=== PATIENT | female | born 1995 | race Caucasian/White ===

== ENCOUNTER 2017-04-17 21:12 | Emergency (ER) | payer BC ==
[2017-04-17 22:49] LABS: BASOPHILS % (AUTO) 0.3 % (0.0-5.0); EOSINOPHILS % (AUTO) 0.4 % (0.0-8.0); HEMATOCRIT 39.1 % (36-48); LYMPHOCYTES % (AUTO) 15.6 % (21.0-51.0); MEAN CORPUSCULAR HEMOGLOBIN 29.7 pg (27.0-33.0); MEAN CORPUSCULAR HGB CONC 34.6 g/dL (32.0-36.0); MEAN CORPUSCULAR VOLUME 86.1 fL (79-99); MONOCYTES % (AUTO) 8.4 % (3.0-13.0); NEUTROPHILS % (AUTO) 75.3 % (40.0-77.0); PLATELET COUNT (AUTO) 264 K/uL (130-400); RED BLOOD CELL COUNT(AUTO) 4.54 MIL/uL (4.00-5.50); RED CELL DISTRIBUTION WIDTH 14.6 % (11.0-15.5); WHITE BLOOD COUNT (AUTO) 13.4 K/uL (4.8-10.8)
[2017-04-17 22:56] LABS: CARBON DIOXIDE 24 mmol/L (21-32); CHLORIDE 105 mmol/L (101-111); CREATININE 0.7 mg/dL (0.5-1.5); GLOMERULAR FILTR. RATE CALC 111 mL/min (>60); GLUCOSE,RANDOM 84 mg/dL (70-105); POTASSIUM 3.5 mmol/L (3.5-5.1); SODIUM SERUM 140 mmol/L (136-145); UREA NITROGEN, BLOOD 10 mg/dL (7-18)
[2017-04-17 23:02] LABS: ALANINE AMINOTRANSFERASE 25 U/L (12-78); ALBUMIN 3.9 g/dL (3.5-5.0); ASPARTATE AMINOTRANSFERASE 19 U/L (10-37); BILIRUBIN,TOTAL 0.7 mg/dL (0.2-1.0); TOTAL PROTEIN, SERUM 7.3 g/dL (6.0-8.3)
[2017-04-17 23:06] LABS: ACETAMINOPHEN < 1 mcg/mL (10-30); ALCOHOL, BLOOD < 3 mg/dL (0-10); SALICYLATE < 2.8 mg/dL (2.8-20.0)
== END 2017-04-18 00:32 | disposition left against medical advice (07) ==
LOC: EDH 21:12
DX: F31.9 Bipolar disorder, unspecified (principal); F22 Delusional disorders; F41.9 Anxiety disorder, unspecified; F90.9 Attention-deficit hyperactivity disorder, unspecified type
CPT/HCPCS: 36415; 80053; 84703; 85025; 93005; 99285; G0480 ×2; G0481

== ENCOUNTER 2019-03-09 23:32 | Emergency (ER) | payer BC | END 2019-03-10 00:23 | disposition home or self-care (01) | LOC: EDH 23:32 | DX: M25.551 Pain in right hip (principal); R05 Cough; F90.9 Attention-deficit hyperactivity disorder, unspecified type; F32.9 Major depressive disorder, single episode, unspecified; Z72.0 Tobacco use | CPT/HCPCS: 99281 ==

== ENCOUNTER 2021-05-27 02:49 | Emergency (ER) | payer BC, MEDICAID, OTHER ==
[~2021-05-27] VITALS: Ht 170.2 cm; Wt 63.5 kg
[2021-05-27] MEDS ORDERED: LORAZEPAM 1 MG TABLET PO ONE (04:30)
[2021-05-27] MEDS ORDERED: LORAZEPAM 1 MG TABLET ONE (04:32)
[2021-05-27 04:46] LABS: APPEARANCE,URINE Cloudy (CLEAR); BILIRUBIN,URINE Negative (NEGATIVE); COLOR,URINE Yellow (YELLOW); GLUCOSE, URINE (UA) Negative (NEGATIVE); KETONES,URINE Negative (NEGATIVE); LEUKOCYTE ESTERASE ,URINE Moderate (NEGATIVE); NITRATE,URINE Positive (NEGATIVE); OCCULT BLOOD,URINE Negative (NEGATIVE); PH,URINE 7.5 (5.0-8.0); PROTEIN,URINE Negative (NEGATIVE)
[2021-05-27 04:53] LABS: BACTERIA,URINE Many /HPF (None Seen); SQUAMOUS EPITHELIAL CELL,UR Few /HPF (0-2)
[2021-05-27 04:54] LABS: HCG,QUAL RESULT NEGATIVE (NEGATIVE)
[2021-05-27 04:55] LABS: AMPHET/METH SCREEN,URINE NEGATIVE (NEGATIVE); BARBITURATE SCREEN, URINE NEGATIVE (NEGATIVE); BENZODIAZEPINES SCREEN,URINE NEGATIVE (NEGATIVE); CANNABINOID SCREEN,URINE POSITIVE (NEGATIVE); COCAINE SCREEN,URINE POSITIVE (NEGATIVE); OPIATE SCREEN,URINE NEGATIVE (NEGATIVE); PHENCYCLIDINE SCREEN,URINE NEGATIVE (NEGATIVE)
[2021-05-27 06:06] VITALS: BP 125/90
[2021-05-27] MEDS ORDERED: CEFTRIAXONE 1G VIAL ONE (06:16)
[2021-05-27] MEDS ORDERED: CEPH500B PO (06:17)
[2021-05-27] MEDS ORDERED: LIDOCAINE HCL-MPF 1% 2ML VIAL ONE (06:18)
[2021-05-27] MEDS ORDERED: CEFTRIAXONE 1G VIAL IM SCH (06:30)
== END 2021-05-27 08:16 | disposition home or self-care (01) ==
LOC: EDH 02:49
DX: N39.0 Urinary tract infection, site not specified (principal); F14.10 Cocaine abuse, uncomplicated; F41.9 Anxiety disorder, unspecified; F31.9 Bipolar disorder, unspecified; F17.200 Nicotine dependence, unspecified, uncomplicated; Z59.00 Homelessness unspecified
CPT/HCPCS: 80305; 81001; 81025; 87077; 87088; 87186; 87486; 87797; 96372; 99283; J0696; J3490

== ENCOUNTER 2023-09-28 09:41 | Emergency (ER) | payer MEDICAID ==
[~2023-09-28] VITALS: Ht 170.2 cm; Wt 58.5 kg
[~2023-09-28 09:41] MED LIST: CEPH500B PO
[2023-09-28 10:47] LABS: BASOPHILS # (AUTO) 0.03 K/uL (0.00-0.20); BASOPHILS % (AUTO) 0.5 % (0.0-5.0); EOSINOPHILS # (AUTO) 0.08 K/uL (0.00-0.70); EOSINOPHILS % (AUTO) 1.2 % (0.0-8.0); IMMATURE GRANULOCYTE ABSOLUTE 0.03 K/uL (0-1); LYMPHOCYTES % (AUTO) 45.8 % (21.0-51.0); MEAN CORPUSCULAR HEMOGLOBIN 29.8 pg (27.0-33.0); MEAN CORPUSCULAR HGB CONC 32.7 g/dL (32.0-36.0); MEAN CORPUSCULAR VOLUME 91.3 fL (79-99); MONOCYTES # (AUTO) 0.5 K/uL (0.1-1.0); MONOCYTES % (AUTO) 7.9 % (3.0-13.0); NEUTROPHILS # (AUTO) 2.9 K/uL (1.8-7.7); NEUTROPHILS % (AUTO) 44.1 % (40.0-77.0); PLATELET COUNT (AUTO) 247 K/uL (130-400); RED BLOOD CELL COUNT(AUTO) 4.49 MIL/uL (4.00-5.50); WHITE BLOOD COUNT (AUTO) 6.5 K/uL (4.8-10.8)
[2023-09-28] MEDS: LORAZEPAM 2 MG/ML 1 ML VIAL IVP ONE (10:51)
[2023-09-28] MEDS: OLANZAPINE 10MG/ML 1ML VIAL IM SCH (11:03)
[2023-09-28 11:05] LABS: CARBON DIOXIDE 25 mmol/L (21-32); CHLORIDE 102 mmol/L (101-111); CREATINE KINASE, TOTAL 54 U/L (21-232); CREATININE 0.7 mg/dL (0.5-1.0); GLOMERULAR FILTR. RATE CALC 121 mL/min (>90); GLUCOSE,RANDOM 81 mg/dL (70-105); POTASSIUM 3.7 mmol/L (3.5-5.1); SODIUM SERUM 137 mmol/L (136-145); UREA NITROGEN, BLOOD 8 mg/dL (7-18)
[2023-09-28 11:24] LABS: ALCOHOL, BLOOD 5 mg/dL (0-10)
[2023-09-28 11:28] LABS: ACETAMINOPHEN < 1 mcg/mL (10-30); SALICYLATE < 2.8 mg/dL (2.8-20.0)
[2023-09-28 12:39] LABS: APPEARANCE,URINE CLEAR (CLEAR); BILIRUBIN,URINE NEGATIVE (NEGATIVE); COLOR,URINE LIGHT-YELLOW (YELLOW); GLUCOSE, URINE (UA) NEGATIVE (NEGATIVE); KETONES,URINE NEGATIVE (NEGATIVE); LEUKOCYTE ESTERASE ,URINE 250 Leu/uL (NEGATIVE); NITRATE,URINE NEGATIVE (NEGATIVE); OCCULT BLOOD,URINE NEGATIVE (NEGATIVE); PROTEIN,URINE NEGATIVE (NEGATIVE); UROBILINOGEN,URINE 0.2 mg/dL (0.2-1.0)
[2023-09-28 12:43] LABS: ADD UA MICROSCOPIC YES
[2023-09-28 12:44] LABS: BACTERIA,URINE RARE /HPF (None Seen); MUCUS,URINE RARE LPF (None Seen); SQUAMOUS EPITHELIAL CELL,UR RARE /HPF (0-2); YEAST,URINE BUDDING FEW /HPF (None Seen); YEAST,URINE HYPHAE RARE /HPF (None Seen)
[2023-09-28 12:47] LABS: AMPHET/METH SCREEN,URINE NEGATIVE (NEGATIVE); BARBITURATE SCREEN, URINE NEGATIVE (NEGATIVE); BENZODIAZEPINES SCREEN,URINE NEGATIVE (NEGATIVE); CANNABINOID SCREEN,URINE POSITIVE (NEGATIVE); COCAINE SCREEN,URINE NEGATIVE (NEGATIVE); OPIATE SCREEN,URINE NEGATIVE (NEGATIVE); PHENCYCLIDINE SCREEN,URINE NEGATIVE (NEGATIVE)
[2023-09-28] MEDS: HALOPERIDOL INJ 5 MG/ML VIAL IM ONE (22:16)
[2023-09-29] MEDS: LORAZEPAM 2 MG/ML 1 ML VIAL IM ONE (12:09)
[2023-09-29] MEDS: HALOPERIDOL INJ 5 MG/ML VIAL IM ONE (12:10)
[2023-09-29] MEDS: DiphenhydrAMINE HCL 50 MG/ML VIAL IM ONE (12:10)
[2023-09-29 13:27] VITALS: BP 95/54
[2023-09-29 14:10] VITALS: PULSE 98; RESP 14; O2SAT 98
== END 2023-09-29 17:20 ==
LOC: EDH 09:41
DX: F14.10 Cocaine abuse, uncomplicated (principal); F17.200 Nicotine dependence, unspecified, uncomplicated; F20.9 Schizophrenia, unspecified; F31.9 Bipolar disorder, unspecified; F41.9 Anxiety disorder, unspecified
CPT/HCPCS: 99285; 82550; 80048; 80305; 85025; 87086; 81001; 81025; 36415; 96372 ×5; 96374; G0481; S0166 ×2; J1630 ×2; J2060 ×2; J1200; J3490